=== PATIENT | female | born 1960 | race Caucasian/White ===

== ENCOUNTER 2023-07-18 12:30 | Emergency (ER) | payer OTHER, SELFPAY ==
[2023-07-18 12:45] VITALS: BP 150/78; PULSE 84; RESP 18; TEMP 37.1; O2SAT 97; BMI 39.0
--- NOTE | 2023-07-18 13:45 | CRLHL7_ITS ---
For Patients: As a result of the Century Cures Act, medical imaging exams and procedure reports are released immediately into your electronic medical record. You may view this report before your referring provider. If you have questions, please contact your health care provider. Indication: Trauma. Technique: Pelvis/left hip, 3 views. Comparison: None. Findings/Impression: Bones: Alignment is normal. No displaced fractures or bone lesions. Joint spaces: Left total hip arthroplasty without hardware complication. Soft tissues: Unremarkable. Dictated by Perfecto Cornejo MD @ 07/18/2023 3:02:19 PM (Electronically Signed)
--- NOTE | 2023-07-18 13:45 | CRLHL7_ITS ---
For Patients: As a result of the Century Cures Act, medical imaging exams and procedure reports are released immediately into your electronic medical record. You may view this report before your referring provider. If you have questions, please contact your health care provider. INDICATION: Fall TECHNIQUE: CT head without contrast. COMPARISON: None. FINDINGS: CSF spaces: Within normal limits for age. Brain parenchyma: The stiles-white differentiation is normal. No sign of mass, hemorrhage, or midline shift. Skull base and calvarium: The visualized paranasal sinuses and mastoid air cells demonstrate no acute or significant findings. The visualized orbits are grossly unremarkable. No skull fractures. Small left scalp hematoma at the vertex. Atherosclerosis. IMPRESSION: Scalp hematoma without calvarial fracture or intracranial bleed. Please note that all CT scans at this facility use dose modulation, iterative reconstruction, and/or weight-based dosing when appropriate to reduce radiation dose to as low as reasonably achievable. Dictated by Reginald Garcia MD @ 07/18/2023 3:04:39 PM (Electronically Signed)
--- NOTE | 2023-07-18 13:45 | CRLHL7_ITS ---
For Patients: As a result of the Cures Act, medical imaging exams and procedure reports are released immediately into your electronic medical record. You may view this report before your referring provider. If you have questions, please contact your health care provider. INDICATION: Fall TECHNIQUE: CT cervical spine without contrast. COMPARISON: None FINDINGS: Vertebrae: Alignment is normal. There are no fractures or suspicious bony lesions. Discs and facet joints: Facet hypertrophy C2-3 without significant stenosis. Facet hypertrophy is C3-4 causing moderate left foraminal stenosis. Facet hypertrophy with small posterior osteophytes at C4-5 causing moderate right and severe left foraminal stenosis. Facet hypertrophy and posterior osteophytes at C5-6 causing moderate to severe right and severe left foraminal stenosis. Facet hypertrophy at C6-7 and C7-T1 without significant stenosis. Extraspinal findings: Calcified right lobe thyroid nodule. IMPRESSION: 1. Multilevel degenerative changes cervical spine without evidence of cervical spine fracture. 2. Calcified right lobe thyroid nodule. Suggest follow-up outpatient thyroid ultrasound for further characterization. Please note that all CT scans at this facility use dose modulation, iterative reconstruction, and/or weight-based dosing when appropriate to reduce radiation dose to as low as reasonably achievable. Dictated by Reginald Garcia MD @ 07/18/2023 3:13:07 PM (Electronically Signed)
--- NOTE | 2023-07-18 13:45 | CRLHL7_ITS ---
For Patients: As a result of the Cures Act, medical imaging exams and procedure reports are released immediately into your electronic medical record. You may view this report before your referring provider. If you have questions, please contact your health care provider. Indication: Trauma. Technique: Left elbow, 3 views. Comparison: None. Findings/Impression: Bones: Alignment is normal. No displaced fractures or bone lesions. Joint spaces: Unremarkable. Soft tissues: Unremarkable. Dictated by Perfecto Cornejo MD @ 07/18/2023 3:04:04 PM (Electronically Signed)
[2023-07-18] MEDS: KETOROLAC 30 MG/ML inj IM (13:54)
--- NOTE | 2023-07-18 14:01 | ED.GENADULT ---
HPI - General Adult General Date Seen: 07/18/23 Chief complaint: Head Injury/Pain Stated complaint: Fell, hurt head and hip Time Seen by Provider: 07/18/23 13:40 Source: patient Mode of arrival: ambulatory Limitations: no limitations History of Present Illness HPI narrative: Patient is 63-year-old female with hypertension, hyperlipidemia, diabetes presents emergency department after a fall. She says she slipped on some water falling backwards in her head and left elbow and hip. States that 2 hours prior to me seeing her in her ED room. States right now she is having a headache in as tenderness posterior aspect of her head where she had. It is also been else in left elbow pain and left hip pain. Mild neck pain she states more paraspinal in the upper neck. Denies loss of consciousness. Denies lightheadedness or dizziness. States she was able to walk in without issues. Denies numbness, weakness, vision changes, chest pain, shortness of breath, abdominal pain, back pain. 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 Has had previous left hip replacement. No other concerns at this time Related Data Home Medications Medication Instructions Recorded Confirmed atenolol 100 mg tablet 100 mg PO DAILY 07/18/23 07/18/23 atorvastatin 40 mg tablet 40 mg PO QPM 07/18/23 07/18/23 blood sugar diagnostic (OneTouch 07/18/23 07/18/23 Ultra Test strips) hydrochlorothiazide 25 mg tablet 25 mg PO DAILY 07/18/23 07/18/23 lisinopril 30 mg tablet 30 mg PO DAILY 07/18/23 07/18/23 metformin 1,000 mg tablet 1,000 mg PO BID 07/18/23 07/18/23 nifedipine 30 mg tablet,extended 30 mg PO DAILY 07/18/23 07/18/23 release Previous Rx's Medication Instructions Recorded ketorolac 10 mg tablet 10 mg PO TID 5 days #15 tabs 07/18/23 Allergies Allergy/AdvReac Type Severity Reaction Status Date / Time No Known Drug Allergies Allergy Verified 07/18/23 12:48 Review of Systems Status of ROS: Reports: 10 or more systems reviewed and unremarkable except as noted in History and below Exam Narrative: Exam Narrative: Const: Well-nourished, Well-developed, in mild distress Eyes: PERRL, no conjunctival injection, and symmetrical lids HENT: Atraumatic external nose and ears. Moist mucous membranes. Neck: Symmetric, trachea midline, No thyromegaly. CVS: RRR, No murmurs or gallops. Peripheral pulses 2+ and equal in all extremities RESP: Unlabored respiratory effort. Clear to auscultation bilaterally. GI: Nontender/Nondistended, No rebound or guarding. MSK:Extremities w/o deformity, Normal Active ROM. Tenderness to palpation left hip and left elbow. Mild midline tenderness around C1-C2 with Bobby is noted in the paraspinal muscles. No midline tenderness or step-offs nausea and lumbar or thoracic spine. Skin: Warm, Dry. No rashes or lesions. Neuro: Normal Muscle tone, No focal neurological deficits. Psych: Awake, Alert, & Oriented x3. Appropriate mood and affect. Const: Vital Signs, click to edit/add: Vital Signs - 24 hr 07/18/23 12:45 Temperature 98.8 F Pulse Rate [Right Pulse Oximeter] 84 Respiratory Rate 18 Blood Pressure [Ri ght Upper Arm] 150/78 H Pulse Oximetry 97 Oxygen Delivery Me thod Room Air Course Vital Signs Vital signs: Initial Vital Signs Temperature 98.8 F 07/18/23 12:45 Temperature Source Temporal Artery Scan 07/18/23 12:45 Pulse Rate 84 07/18/23 12:45 Respiratory Rate 18 07/18/23 12:45 Blood Pressure 150/78 H 07/18/23 12:45 Blood Pressure Mean 102 07/18/23 12:45 Blood Pressure Position Sitting 07/18/23 12:45 Pulse Oximetry 97 07/18/23 12:45 Oxygen Delivery Method Room Air 07/18/23 12:45 Vital Signs Temperature 98.8 F 07/18/23 12:45 Pulse Rate 84 07/18/23 12:45 Respiratory Rate 18 07/18/23 12:45 Blood Pressure 150/78 H 07/18/23 12:45 Pulse Oximetry 97 07/18/23 12:45 Oxygen Delivery Method Room Air 07/18/23 12:45 Temperature 98.8 F 07/18/23 12:45 Pulse Rate 84 07/18/23 12:45 Respiratory Rate 18 07/18/23 12:45 Blood Pressure 150/78 H 07/18/23 12:45 Pulse Oximetry 97 07/18/23 12:45 Oxygen Delivery Method Room Air 07/18/23 12:45 Medical Decision Making [facility] Narrative Medical decision making narrative: Patient is 5 ft female who slipped and fell hitting her head and left elbow and left hip. She has pain to palpation in those areas along with some pain in her neck. We did imaging of the head, cervical spine, left elbow, left hip. She has no other tenderness noted. No injuries or step-offs noted in her thoracic or lumbar spine. I do not believe further imaging is necessary other than what was already been ordered. She was given Toradol for pain which she says really the symptoms significantly. Imaging all returned showing no acute abnormalities. She is safe for discharge and she is agreeable to this plan. Imaging Data CT scan - head: Radiologist's impression: INDICATION: Fall TECHNIQUE: CT head without contrast. COMPARISON: None. FINDINGS: CSF spaces: Within normal limits for age. Brain parenchyma: The stiles-white differentiation is normal. No sign of mass, hemorrhage, or midline shift. Skull base and calvarium: The visualized paranasal sinuses and mastoid air cells demonstrate no acute or significant findings. The visualized orbits are grossly unremarkable. No skull fractures. Small left scalp hematoma at the vertex. Atherosclerosis. IMPRESSION: Scalp hematoma without calvarial fracture or intracranial bleed. Please note that all CT scans at this facility use dose modulation, iterative reconstruction, and/or weight-based dosing when appropriate to reduce radiation dose to as low as reasonably achievable. Dictated by Reginald Garcia MD @ 07/18/2023 3:04:[address] scan cervical spine: Radiologist's impression: INDICATION: Fall TECHNIQUE: CT cervical spine without contrast. COMPARISON: None FINDINGS: Vertebrae: Alignment is normal. There are no fractures or suspicious bony lesions. Discs and facet joints: Facet hypertrophy C2-3 without significant stenosis. Facet hypertrophy is C3-4 causing moderate left foraminal stenosis. Facet hypertrophy with small posterior osteophytes at C4-5 causing moderate right and severe left foraminal stenosis. Facet hypertrophy and posterior osteophytes at C5-6 causing moderate to severe right and severe left foraminal stenosis. Facet hypertrophy at C6-7 and C7-T1 without significant stenosis. Extraspinal findings: Calcified right lobe thyroid nodule. IMPRESSION: 1. Multilevel degenerative changes cervical spine without evidence of cervical spine fracture. 2. Calcified right lobe thyroid nodule. Suggest follow-up outpatient thyroid ultrasound for further characterization. Please note that all CT scans at this facility use dose modulation, iterative reconstruction, and/or weight-based dosing when appropriate to reduce radiation dose to as low as reasonably achievable. Dictated by Reginald Garcia MD @ 07/18/2023 3:13:07 PM Left hip x-ray: Radiologist's impression: Indication: Trauma. Technique: Pelvis/left hip, 3 views. Comparison: None. Findings/Impression: Bones: Alignment is normal. No displaced fractures or bone lesions. Joint spaces: Left total hip arthroplasty without hardware complication. Soft tissues: Unremarkable. Dictated by Perfecto Cornejo MD @ 07/18/2023 3:02:19 PM Left elbow x-ray: Radiologist's impression: Indication: Trauma. Technique: Left elbow, 3 views. Comparison: None. Findings/Impression: Bones: Alignment is normal. No displaced fractures or bone lesions. Joint spaces: Unremarkable. Soft tissues: Unremarkable. Dictated by Perfecto Cornejo MD @ 07/18/2023 3:04:04 PM Discharge Plan Discharge Clinical Impression: Closed head injury Qualifiers: Encounter type: initial encounter Qualified Code(s): S09.90XA - Unspecified injury of head, initial encounter Patient Disposition: Home, Self-Care Condition: Improved Instructions: Head Injury (ED) Additional Instructions: You take Tylenol for pain. I did prescribe you Toradol with good should now it can cause gastric ulcers. Do not take Toradol and ibuprofen or naproxen at the same time. A calcified nodule seen in euthyroid. Recommend you follow up with the primary care provider for an outpatient ultrasound. Prescriptions: New ketorolac 10 mg tablet 10 mg PO TID 5 Days Qty: 15 0RF No Action atorvastatin 40 mg tablet 40 mg PO QPM atenolol 100 mg tablet 100 mg PO DAILY nifedipine 30 mg tablet extended release 30 mg PO DAILY (DME) OneTouch Ultra Test Strip MISCELLANEOUS BID metformin 1,000 mg tablet 1,000 mg PO BID lisinopril 30 mg tablet 30 mg PO DAILY hydrochlorothiazide 25 mg tablet 25 mg PO DAILY Follow Up/Referrals: Provider,Not a Local [Referring] - Stand Alone Forms: [employer] Info Instructions
== END 2023-07-18 15:40 | disposition home or self-care (01) ==
PROVIDERS: Emergency Provider Student in an Organized Health Care Education/Training Program; PCP Family Medicine
DX: S09.90XA Unspecified injury of head, initial encounter (principal); W18.30XA Fall on same level, unspecified, initial encounter
CPT/HCPCS: 70450; 72125; 73080; 73502; 96372; 99283; 99284; 99285; J1885

== ENCOUNTER 2024-06-09 10:15 | Outpatient (RCR) | payer OTHER, SELFPAY | END 2024-08-13 16:56 | disposition home or self-care (01) | PROVIDERS: PCP Family Medicine; Visit Provider Family Medicine | DX: M25.511 Pain in right shoulder (principal); M25.512 Pain in left shoulder; M25.561 Pain in right knee; M25.562 Pain in left knee; G89.29 Other chronic pain; Z51.89 Encounter for other specified aftercare | CPT/HCPCS: 97110; 97112; 97162 ==